=== PATIENT | male | born 1980 | race Caucasian/White ===

== ENCOUNTER 2021-09-10 06:48 | Emergency (ER) | payer SELFPAY ==
[~2021-09-10] VITALS: Ht 175.3 cm; Wt 100.0 kg
--- NOTE | 2021-09-10 09:08 | RAD ---
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 Ins tructions: / History: . One or more of the following dose reduction techniques were utilized: *Automated exposure control (AEC) *Adjustment of mA and/or kV according to patient size *Use of iterative reconstruction technique *CT scan done according to ALARA, or ALARA/IMAGE GENTLY EXAMINATION: CT OF THE HEAD WITHOUT CONTRAST INDICATION: Trauma, head injury, headache; TECHNIQUE: Noncontrast helical axial CT images of the head were obtained. FINDINGS: There is mild right occipital scalp soft tissue swelling and hematoma. No depressed skull fracture i s seen. The ventricles and sulci are normal for the patient's stated age. There is no evidence of acute int racranial hemorrhage, extra-axial collection, mass effect, midline shift, or acute territorial infarc t. No lesion of the skull base or the calvarium is seen. The visualized paranasal sinuses, mastoid ai r cells, and orbits are normal in appearance. IMPRESSION: Mild right occipital scalp soft tissue swelling and hematoma. No depressed skull fracture. No evidence for acute intracranial abnormality. EXAMINATION: CT OF THE CERVICAL SPINE WITHOUT CONTRAST Clinical Indication: Cervical spine pain after trauma Technique: Thin cut helical axial CT images through the cervical spine were obtained without contrast on a multi-detector CT scanner. Source data was then reconstructed into sagittal and coronal planes. Findings: Alignment is maintained without spondylolisthesis. Vertebral body heights are maintained without acute fracture. Moderate multilevel degenerative change s are noted. No significant prevertebral soft tissue swelling is demonstrated. No severe osseous cent ral canal stenosis is seen. Impression: No evidence of acute cervical spine fracture or subluxation. Electronically signed by: Luis Antonio Delvalle MD (09/10/2021 9:05 AM) [id number]
--- NOTE | 2021-09-10 09:13 | RAD ---
Exam Date: 09/10/2021 8:38 AM XR EXAM OF ANKLE_LEFT 3V Indication: Reason: left ankle injured , fell / Spl. Instructions: / History: . FINDINGS/ IMPRESSION: Ankle mortise is intact. Mild calcaneal enthesopathy is present. No acute fracture or dislocation. Alignment and joint spaces are maintained. The soft tissues are w ithin normal limits. Electronically signed by: Luis Antonio Delvalle MD (09/10/2021 9:10 AM) [id number]
[2021-09-10 09:21] VITALS: BP 126/71
--- NOTE | 2021-09-10 09:21 | PHYS DOC ---
Past Medical History Additional Past Medical Histor: Issues with spine. Past Surgical History: Other Additional Past Surgical Histo: Kidney stone removed Smoking Status: Former Smoker Alcohol Use: Occasionally General Adult EDM: Chief Complaint: MECHANICAL FALL HPI: HPI: Patient is a 40 year old male who present to ER for evaluation of head and neck injury, left ankle injury. Patient says he gets about his pickup truck to go into work when he slipped on the ice. Patient twisted his left ankle, patient hit the back of his head on the TRAILERBALL HITCH ON HIS B[employer]ER [employer] TRUCK. Patient denies any loss of consciousness. Patient denies any numbness or weakness in his upper extremity. Patient denies any back pain, no pelvic pain or hip pain. Patient is not on blood thinner. Review of Systems: Review of Systems: Constitutional: Denies fever or chills. [] Eyes: Denies change in visual acuity. [] HENT: Denies nasal congestion or sore throat. [] Respiratory: Denies cough or shortness of breath. [] Cardiovascular: Denies chest pain or edema. [] GI: Denies abdominal pain, nausea, vomiting, bloody stools or diarrhea. [] : Denies dysuria. [] Musculoskeletal: Denies back pain , positive for left ankle pain Integument: Denies rash. [] Neurologic: Positive headache, no neck pain, NO focal weakness or sensory changes. [] Endocrine: Denies polyuria or polydipsia. [] Lymphatic: Denies swollen glands. [] Psychiatric: Denies depression or anxiety. [] Heart Score: C/O Chest Pain: N/A Risk Factors: Risk Factors: DM, Current or recent (<one month) smoker, HTN, HLP, family history of CAD, obesity. Risk Scores: Score 0 - 3: 2.5% MACE over next 6 weeks - Discharge Home Score 4 - 6: 20.3% MACE over next 6 weeks - Admit for Clinical Observation Score 7 - 10: 72.7% MACE over next 6 weeks - Early Invasive Strategies Allergies: Allergies: Allergies Coded Allergies Type Severity Reaction Last Updated Verified No Known Drug Allergies 09/10/21 No Physical Exam: PE: Constitutional: Well developed, well nourished, no acute distress, non-toxic appearance. [] HENT: Normocephalic, left occipital area scalp contusion, bilateral external ears normal, oropharynx moist, no oral exudates, nose normal. [] Eyes: PERRLA, EOMI, conjunctiva normal, no discharge. [] Neck: Normal range of motion, supple, no stridor. There is tenderness to palpation on upper left lateral paraspinal muscle area of the neck. N Cardiovascular:Heart rate regular rhythm, no murmur [] Lungs & Thorax: Bilateral breath sounds clear to auscultation [] Abdomen: Bowel sounds normal, soft, no tenderness, no masses, no pulsatile masses. [] Skin: Warm, dry, no erythema, no rash. [] Back: No tenderness, no CVA tenderness. [] Extremities: LEFT ANKLE IS TENDERNESS TO PALPATION ALONG THE LEFT LATERAL MALLEOUS AREA, no cyanosis, no clubbing, ROM intact, no edema. [] Neurologic: Alert and oriented X 3, normal motor function, normal sensory function, no focal deficits noted. [] Psychologic: Affect normal, judgement normal, mood normal. [] Current Patient Data: Vital Signs: Vital Signs Date Time Temp Pulse Resp B/P (MAP) Pulse Ox O2 Delivery O2 Flow Rate FiO2 09/10/21 08:10 97.9 75 16 133/76 (95) 98 Room Air 97.9 EKG: EKG: [] Radiology/Procedures: Radiology/Procedures: [][facility] [address] [place] [address] IMAGING REPORT Signed PATIENT: SUJIT BRAVO ACCOUNT: [id number] : 1980 LOCATION: ER AGE: 40 SEX: M EXAM STATUS: REG ER ORD. 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 Instructions: / History: . One or more of the following dose reduction techniques were utilized: *Automated exposure control (AEC) *Adjustment of mA and/or kV according to patient size *Use of iterative reconstruction technique *CT scan done according to ALARA, or ALARA/IMAGE GENTLY EXAMINATION: CT OF THE HEAD WITHOUT CONTRAST INDICATION: Trauma, head injury, headache; TECHNIQUE: Noncontrast helical axial CT images of the head were obtained. FINDINGS: There is mild right occipital scalp soft tissue swelling and hematoma. No depre ssed skull fracture is seen. The ventricles and sulci are normal for the patient's stated age. There is no evidence of acute intracranial hemorrhage, extra-axial collection, mass effect, midline shift, or acute territorial infarct. No lesion of the skull base or the calvarium is seen. The visualized paranasal sinuses, mastoid air cells, and orbits are normal in appearance. IMPRESSION: Mild right occipital scalp soft tissue swelling and hematoma. No depressed skull fracture. No evidence for acute intracranial abnormality. EXAMINATION: CT OF THE CERVICAL SPINE WITHOUT CONTRAST Clinical Indication: Cervical spine pain after trauma Technique: Thin cut helical axial CT images through the cervical spine were obtained without contrast on a multi-detector CT scanner. Source data was then reconstructed into sagittal and coronal planes. Findings: Alignment is maintained without spondylolisthesis. Vertebral body heights are maintained without acute fracture. Moderate multilevel degenerative changes are noted. No significant prevertebral soft tissue swelling is demonstrated. No severe osseous central canal stenosis is seen. Impression: No evidence of acute cervical spine fracture or subluxation. Electronically signed by: Parminder Ahuja MD (09/10/2021 9:05 AM) [id number] DICTATED and SIGNED BY: PARMINDER AHUJA MD DATE: 09/10/[id number] [facility] [address] [place], [place] [id number] IMAGING REPORT Signed PATIENT: SUJIT BRAVO ACCOUNT: [id number] : 1980 LOCATION: ER AGE: 40 SEX: M EXAM STATUS: REG ER ORD. PHYSICIAN: ROBERTO LIGHT DO REASON: left ankle injured , fell PROCEDURE: ANKLE LEFT 3V Exam Date: 09/10/2021 8:38 AM XR EXAM OF ANKLE_LEFT 3V Indication: Reason: left ankle injured , fell / Spl. Instructions: / History: . FINDINGS/ IMPRESSION: Ankle mortise is intact. Mild calcaneal enthesopathy is present. No acute fracture or dislocation. Alignment and joint spaces are maintained. The soft tissues are within normal limits. Electronically signed by: Parminder Ahuja MD (09/10/2021 9:10 AM) [id number] DICTATED and SIGNED BY: PARMINDER AHUJA MD DATE: 09/10/21 [id number] Course & Med Decision Making: Course & Med Decision Making Pertinent Labs and Imaging studies reviewed. (See chart for details) [] Dragon Disclaimer: Dragon Disclaimer: This electronic medical record was generated, in whole or in part, using a voice recognition dictation system. Departure Departure Impression: Primary Impression: Left ankle sprain Additional Impressions: Head contusion Contusion of neck Disposition: HOME / SELF CARE / HOMELESS Condition: STABLE Referrals: UNKNOWN PCP NAME (PCP) Patient Instructions: Ankle Sprain, Head Injury, Adult, Soft Tissue Injury of the Neck Additional Instructions: Thank you for visiting our Emergency Department. We appreciate you trusting us with your care. If any additional problems come up don't hesitate to return to visit us. Please follow up with your primary care provider so they can plan additional care if needed and know about the problem that you had. If symptoms worsen come back to the Emergency Department. Any concerning symptoms that start such as chest pain, shortness of air, weakness or numbness on one side of the body, running high fevers or any other concerning symptoms return to the ER. Scripts Hydrocodone/Acetaminophen (Hydrocodone-Acetamin 5-325 mg) 1 Each Tablet 1 EACH PO Q6HRS PRN for PAIN, #12 TAB Prov: ROBERTO LIGHT DO 09/10/21 Cyclobenzaprine Hcl (CYCLOBENZAPRINE HCL) 10 Mg Tablet 1 TAB PO TID PRN for MUSCLE SPASMS, #20 TAB Prov: ROBERTO LIGHT DO 09/10/21 ROBERTO LIGHT DO Sep 10, 2021 09:21
[2021-09-10] MEDS ORDERED: HYDR-2759 PO (09:36)
[2021-09-10] MEDS ORDERED: CYCL10TA19 PO (09:36)
== END 2021-09-10 10:05 | disposition home or self-care (01) ==
LOC: ER 06:48
DX: S93.402A Sprain of unspecified ligament of left ankle, initial encounter (principal); S10.93XA Contusion of unspecified part of neck, initial encounter; S00.93XA Contusion of unspecified part of head, initial encounter; R51.9 Headache, unspecified; Z87.891 Personal history of nicotine dependence; W00.0XXA Fall on same level due to ice and snow, initial encounter; Y93.89 Activity, other specified; Y92.89 Other specified places as the place of occurrence of the external cause; Y99.8 Other external cause status
CPT/HCPCS: 70450; 72125; 73610; 99284-25